=== PATIENT | female | born 1965 | race Caucasian/White ===

== ENCOUNTER 2018-11-28 18:49 | Emergency (ER) | payer BC ==
[2018-11-28 19:55] VITALS: RESP 18
[2018-11-28] MEDS ORDERED: IBUPROFEN 600 MG TAB PO STA (20:30)
--- NOTE | 2018-11-28 20:30 | ED ---
General Adult HPI - General Chief complaint: Extremity Injury, Upper Stated complaint: Clavicle injury Time Seen by Provider: 11/28/18 20:09 Source: patient, RN notes reviewed, old records reviewed Mode of arrival: ambulatory Limitations: no limitations - History of Present Illness Initial comments: 53-year-old female patient presented to the for chief complaint of left shoulder injury. Patient was that she was outside riding a horse, when the horse slipped and fell. Patient reports is she was going down she came off of the horse. 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 Patient states that she landed her left shoulder has pain in her left clavicle left shoulder. Denies any trauma to head or neck. Denies any recent blood thinners. Denies all other complaints. Systemic: Pt denies fatigue, fever/chills, rash. Pt denies weakness, night sweats, weight loss. Neuro: Pt denies headache, visual disturbances, syncope or pre-syncope. HEENT: Pt denies ocular discharge or irritation, otalgia, rhinorrhea, pharyngitis or notable lymphadenopathy. Cardiopulmonary: Pt denies chest pain, SOB, heart palpitations, dyspnea on exertion. Abdominal/GI: Pt denies abdominal pain, n/v/d. : Pt denies dysuria, burning w/ urination, frequency/urgency. Denies new onset urinary or bowel incontinence. MSK: Pt denies loss of strength or function in extremities. Neuro: Pt denies new onset weakness, paresthesias. - Related Data Home Medications Medication Instructions Recorded Confirmed No Known Home Medications 02/07/15 02/07/15 Allergies Allergy/AdvReac Type Severity Reaction Status Date / Time No Known Allergies Allergy Verified 11/28/18 19:55 Review of Systems ROS Statement: Those systems with pertinent positive or pertinent negative responses have been documented in the HPI. ROS Other: All systems not noted in ROS Statement are negative. Past Medical History Past Medical History: No Reported History History of Any Multi-Drug Resistant Organisms: None Reported Past Surgical History: No Surgical Hx Reported Past Psychological History: No Psychological Hx Reported Smoking Status: Never smoker Past Alcohol Use History: Occasional Past Drug Use History: None Reported General Exam - General Exam Comments Initial Comments: Constitutional: NAD, AOX3, Pt has pleasant affect. HEENT: NC/AT, trachea midline, neck supple, no lymphadenopathy. Posterior pharynx non erythematous, without exudates. External ears appear normal, without discharge. Mucous membranes moist. Eyes PERRLA, EOM intact. There is no scleral icterus. No pallor noted. Cardiopulmonary: RRR, no murmurs, rubs or gallops, no JVD noted. Lungs CTAB in anterior and posterior gao. No peripheral edema. Abdominal exam: Abdomen soft and non-distended. Abdomen non-tender to palpation in all 4 quadrants. Bowel sounds active in LLQ. No hepatosplenomegaly. No ecchymosis Neuro: CN II-XII intact. No nuchal rigidity. No raccon eyes, no banegas sign, no hemotympanum. No cervical spinal tenderness. MSK: Left clavicle swelling and ecchymoses noted distal aspect. Left humerus mild tender to palpation proximally. Distal pulses upper lower extremities in tact and equal. Small amount ecchymoses tetanus palpation in left dorsal aspect of foot region. Ambulatory without difficulty. No posterior calf tenderness bilaterally, homans sign negative bilaterally. Posterior tibialis and radial pulse +2 bilaterally. Sensation intact in upper and lower extremities. Full active ROM in upper and lower extremities, 5/5 stregnth. Limitations: no limitations Course Vital Signs 11/28/18 19:53 Temperature 98.2 F Pulse Rate 82 Respiratory 18 Rate Blood Pressure 163/88 O2 Sat by Pulse 99 Oximetry Medical Decision Making - Medical Decision Making 53-year-old female patient presented to the for chief complaint of left shoulder injury. Patient was that she was outside riding a horse, when the horse slipped and fell. Patient reports is she was going down she came off of the horse. 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 Patient states that she landed her left shoulder has pain in her left clavicle left shoulder. Denies any trauma to head or neck. Denies any recent blood thinners. Denies all other c omplaints. Patient vital signs stable, afebrile. Physical exam displayed ecchymoses at left distal clavicle. Tender to palpation. Mild amount of proximal humerus tenderness. No ecchymoses. Distal pulses intact and equal in upper and lower extremities. Left foot has mild amount of ecchymoses and swelling soft tissue on dorsal aspect. Patient is ambulatory without difficulty. Plain films displayed left clavicle fracture. Patient placed in sling, will be discharged with close outpatient orthopedic follow-up and pain medication. Case discussed with Dr. Dow. Disposition Clinical Impression: Clavicle fracture Disposition: HOME SELF-CARE Condition: Stable Instructions (If sedation given, give patient instructions): Clavicle Fracture (ED) Additional Instructions: Patient to adhere to previously discussed treatment plan and will take medication(s) as directed. Patient to follow up with PCP in 1-2 days. Patient to return to ED if symptoms do not improve. Follow up with primary care provider and orthopedic consult tomorrow. Continue to wear sling. Return to ER if condition worsens Is patient prescribed a controlled substance at d/c from ED?: No Referrals: Lani Sinha MD [REFERRING] - 1-2 days Wilner Marc MD [STAFF PHYSICIAN] - 1-2 days
--- NOTE | 2018-11-28 20:52 | XR ---
EXAMINATION TYPE: XR chest 2V DATE OF EXAM: 11/28/2018 COMPARISON: NONE HISTORY: Generalized pain after fall injury. TECHNIQUE: Frontal and lateral views of the chest are obtained. FINDINGS: There is chronic emphysematous change without suspicious focal space opacity, pleural effu danielito, or pneumothorax seen. The cardiac silhouette size is within normal limits. Overlying bra strap is seen. Comminuted acute displaced fracture through distal one third of left clavicle without AC akua int separation. IMPRESSION: Chronic emphysematous change without acute pulmonary process. Acute comminuted displaced fracture through distal one third left clavicle.
--- NOTE | 2018-11-28 21:17 | XR ---
PROCEDURE: XR humerus LT - 2V DATE AND TIME: 11/28/2018 8:56 PM CLINICAL INDICATION: PHH; pain after injury TECHNIQUE: Department protocol COMPARISON: None FINDINGS: There is no fracture or malalignment. The soft tissues are unremarkable. IMPRESSION: NO ACUTE PROCESS.
--- NOTE | 2018-11-28 21:18 | XR ---
PROCEDURE: XR shoulder limited LT - 1V DATE AND TIME: 11/28/2018 8:56 PM CLINICAL INDICATION: PHH; fall, pain TECHNIQUE: Department protocol COMPARISON: None FINDINGS: There is a one shaft caudally-displaced mildly comminuted fracture of the distal left clavi evelia. The acromioclavicular joint remains congruent as does the sternoclavicular joint. No other findings. IMPRESSION: Left clavicle fracture.
--- NOTE | 2018-11-28 21:22 | XR ---
PROCEDURE: XR foot limited LT - 2V DATE AND TIME: 11/28/2018 9:17 PM CLINICAL INDICATION: PHH; pain after injury TECHNIQUE: Department protocol COMPARISON: 02/07/2015 FINDINGS: There is no fracture or malalignment. The soft tissues are unremarkable. IMPRESSION: NO ACUTE PROCESS.
[2018-11-28] MEDS ORDERED: IBUPROFEN 600 MG STARTER PACK 4 TAB BTL PO STA (21:40)
[2018-11-28] MEDS ORDERED: ACET/COD 300 MG/30 MG STARTER PACK 6 TAB BTL PO STA (21:40)
[2018-11-28 23:08] VITALS: BP 153/70; PULSE 65; TEMP 98
== END 2018-11-28 21:50 | disposition home or self-care (01) ==
LOC: EC 18:49
DX: S42.032A Displaced fracture of lateral end of left clavicle, initial encounter for closed fracture (principal); S90.32XA Contusion of left foot, initial encounter; V80.010A Animal-rider injured by fall from or being thrown from horse in noncollision accident, initial encounter; Y93.52 Activity, horseback riding
CPT/HCPCS: 71046; 99284

== ENCOUNTER → 2019-03-16 | Outpatient (CLI) | payer BC ==
--- NOTE | 2019-03-16 14:05 | EST ---
EXERCISE STRESS AGE: 53 SEX: Female HT: 60 WT: 111 PROTOCOL: Jakob. STAGE: III DURATION OF EXERCISE: 7:00 HEART RATE REST: 84 BLOOD PRESSURE REST: 141/86 MAXIMUM HEART RATE ACHIEVED: 155 MAXIMUM BLOOD PRESSURE: 168/85 85% MPHR: 141 100% MPHR: 166 METS: 8.5 INDICATIONS: CLINICAL INFORMATION: Exercise stress test was performed. Patient was exercised for a total period of 7 minutes a peak heart rate of 155 was achieved. Maximum blood pressure of 168/85 mmHg was noted. The resting EKG shows normal sinus rhythm with normal NE interval and QRS duration and normal ST-T waves. During exercise J-point depression with upsloping ST segments are noted. Patient did not complain of any chest pain during the test. No dysrhythmias are noted. FINAL IMPRESSION: 1. This exercise test is not suggestive of ischemia. 2. Patient's exercise tolerance is normal. 3. Patient did not complain of any chest pain during the test. MMODL / IJN: [id number] /
== END | disposition home or self-care (01) ==
LOC: RADNMMAIN 08:41
PROVIDERS: ATTEND Family Medicine
DX: R94.31 Abnormal electrocardiogram [ECG] [EKG] (principal)
CPT/HCPCS: 93017

== ENCOUNTER → 2019-03-16 | Outpatient (CLI) | payer BC ==
[2019-03-16 11:31] LABS: Partial Thromboplastin Time 24.7 sec (22.0-30.0)
== END | disposition home or self-care (01) ==
LOC: LABWHC1 10:27
PROVIDERS: ATTEND Nurse Practitioner Family
DX: Z01.812 Encounter for preprocedural laboratory examination (principal); Z13.0 Encounter for screening for diseases of the blood and blood-forming organs and certain disorders involving the immune mechanism; Z13.228 Encounter for screening for other metabolic disorders; Z13.220 Encounter for screening for lipoid disorders; Z01.84 Encounter for antibody response examination; R94.31 Abnormal electrocardiogram [ECG] [EKG]
CPT/HCPCS: 36415; 85610; 85730

== ENCOUNTER 2019-03-22 13:39 | Day surgery (SDC) | payer BC ==
[2019-03-19 16:14] VITALS: BMI 21.4
[~2019-03-22 13:39] MED LIST: ACETAMINOPHEN TAB 500 MG TAB PO ONE; DEXAMETHASONE SOD PHOSPHATE 10 MG/ML 1 ML VIAL IV ONE; LIDOCAINE 1% 20 ML VIAL (10MG/ML) FOR IV START INTRADERMA PRN; MIDAZOLAM 2 MG/2 ML VIAL IV PRN; ONDANSETRON 4 MG/2 ML VIAL IVP ONE; SCOPOLAMINE 1.5MG/72HR PATCH TRANSDERM ONE
[2019-03-22] MEDS: LACTATED RINGERS 1,000 ML IV SCH ×3 (14:08→23:19)
[2019-03-22] MEDS ORDERED: MIDAZOLAM 2 MG/2 ML VIAL IV ONE (14:33)
[2019-03-22] MEDS ORDERED: ePHEDrine SULFATE/0.9% NACL/PF 50 MG/5 ML SYRINGE IV ONE (14:57)
[2019-03-22] MEDS ORDERED: PROPOFOL 10 MG/ML 20 ML VIAL IV ONE (14:57)
[2019-03-22] MEDS ORDERED: SUCCINYLCHOLINE CHLORIDE 100 MG/5 ML SYR IV ONE (14:57)
[2019-03-22] MEDS ORDERED: LIDOCAINE 1% INJ 10MG/ML (20 ML MDV) ONE (14:57)
[2019-03-22] MEDS ORDERED: MIDAZOLAM 2 MG/2 ML VIAL ONE (14:57)
[2019-03-22] MEDS ORDERED: fentaNYL (PF) 50 MCG/ML 2 ML AMP ONE (14:57)
[2019-03-22] MEDS ORDERED: BUPIVACAINE (PF) 0.25% 30 ML VIAL SQ ONE ×2 (15:29→16:20)
[2019-03-22] MEDS ORDERED: VANCOMYCIN 1,000 MG VIAL MISCELLANE ONE (16:06)
[2019-03-22] MEDS ORDERED: LACTATED RINGERS 1,000 ML IV ONE (16:17)
[2019-03-22] MEDS: HYDROmorphone 0.5 MG/0.5 ML SYRINGE IVP PRN ×2 (16:45→16:50)
[2019-03-22] MEDS ORDERED: LABETALOL SYRINGE 5 MG/ML IVP ONE (17:00)
[2019-03-22] MEDS ORDERED: MORPHINE SULFATE 4 MG/ML SYRINGE IV PRN (19:56)
[2019-03-22] MEDS ORDERED: HYDROcodone/APAP 7.5-325MG 1 EACH TAB PO PRN (20:01)
[2019-03-22] MEDS ORDERED: ONDANSETRON 4 MG/2 ML VIAL IVP PRN (20:02)
[2019-03-23] MEDS ORDERED: ACETAMINOPHEN TAB 325 MG TAB PO PRN (08:12)
[2019-03-23] MEDS ORDERED: ACETAMINOPHEN TAB 325 MG TAB PO STA (08:12)
[2019-03-23 08:19] VITALS: RESP 17; TEMP 97.2
--- NOTE | 2019-03-23 08:40 | P.DS ---
Providers Expected date of discharge: 03/23/19 Attending physician: Wilner Marc Primary care physician: Lani Sinha - Discharge Diagnosis(es) (1) Clavicle fracture Patient was admitted to the OR on 03/22/2019 to undergo ORIF of left clavicle fracture. She had failed conservative measures as an outpatient desired to proceed with elective surgery after given informed consent. She underwent the above procedure which she tolerated well without complication. Postoperative hospital remained without complication. On day of discharge she is afebrile, vital signs stable, labs within acceptable ranges, tolerating by mouth meds and diet, voiding without difficulty, positive flatus, denies abdominal pain or calf pain, pain is controlled on oral pain medication and has no new complaints. Wound is benign, neurovascular status is intact, calf is soft and nontender, abdomen soft and nontender. Review of systems is negative for numbness, tingling, fever, chills, chest pain, shortness of breath, nausea, vomiting, dizziness, headaches, slurred speech or other Current Visit: Yes Status: Acute Priority: Medium Procedures: ORIF Left Clavicle Patient Condition at Discharge: Good Plan - Discharge Summary Discharge Rx Participant: No New Discharge Prescriptions: New Doxycycline Hyclate 100 mg PO BID #10 tab HYDROcodone/APAP 7.5-325MG [[place] 7.5-325] 1 - 2 each PO Q6HR PRN #56 tab PRN Reason: Pain No Action Calcium Carbonate/Vitamin D3 [Calcium 600-Vit D3 2,500 Sftgl] 2.5 each PO DAILY Cholecalciferol (Vitamin D3) [Vitamin D3] 5,000 unit PO DAILY Acetaminophen Tab [Tylenol Tab] 650 mg PO Q4H PRN PRN Reason: Pain Discharge Medication List Calcium Carbonate/Vitamin D3 [Calcium 600-Vit D3 2,500 Sftgl] 2.5 each PO DAILY 03/19/19 [History] Cholecalciferol (Vitamin D3) [Vitamin D3] 5,000 unit PO DAILY 03/19/19 [History] Acetaminophen Tab [Tylenol Tab] 650 mg PO Q4H PRN 03/21/19 [History] Doxycycline Hyclate 100 mg PO BID #10 tab 03/22/19 [Rx] HYDROcodone/APAP 7.5-325MG [[place] 7.5-325] 1 - 2 each PO Q6HR PRN #56 tab 03/22/19 [Rx] Follow up Appointment(s)/Referral(s): Wilner Marc MD [STAFF PHYSICIAN] - 1 Week Patient Instructions/Handouts: *Surgery [facility] - (Anesthesia) Discharge Instructions Outpatient Surgery, *Surgery [facility] - Scopalamine Patch Instructions Activity/Diet/Wound Care/Special Instructions: Maintain sling Keep wound clean and dry take meds as directed F/U with Dr. Marc in office call to make appointment to see him in 1 week May shower in three days if no bleeding Discharge Disposition: HOME SELF-CARE
--- NOTE | 2019-03-23 11:39 | OP ---
OPERATIVE REPORT DATE OF PROCEDURE: 03/22/2019 PREOPERATIVE DIAGNOSIS: Left midshaft displaced clavicle fracture. POSTOPERATIVE DIAGNOSIS: Left midshaft displaced clavicle fracture. PROCEDURE PERFORMED: Open reduction, internal fixation, left clavicle fracture. SURGEON: Wilner Marc MD. BARREL TESTER: Kenny BERNAL. ANESTHESIA: General endotracheal. ESTIMATED BLOOD LOSS: 50 mL. TOURNIQUET: None. DRAINS: None. COMPLICATIONS: None apparent. DISPOSITION: Postanesthesia care unit. INDICATIONS: Holly is a very pleasant 53-year-old female who injured her left clavicle after she fell off a horse. Workup including x-rays revealed a displaced midshaft clavicle fracture. I had a long discussion with her initially. She elected to try treating this non operatively. It has been several months now and there has not been any evidence of healing of the fracture. At this point in time, she has elected to proceed with open reduction, internal fixation of the midshaft clavicle fracture. The risks of the procedure were discussed with her and her family in detail. These risks include, but are not limited to risk of infection, nerve damage, bleeding, pain, and a small risk of deep vein thrombosis which could lead to fatal pulmonary embolism. Further risks include possibility for hardware failure and also possibility of failure of the fracture to heal. All of her and her family's questions were answered to her satisfaction. Appropriate informed consent was obtained. DESCRIPTION OF THE PROCEDURE: Patient identified in the preoperative holding area. Surgical site was marked by both the patient and myself. She was given 2 g of Ancef IV for prophylactic purposes. She was then transported to the operative suite. She was placed supine on the operative table. General anesthetic was then administered and dosed per the Anesthesia Department without apparent complication. Examination under anesthesia was then performed. She was then placed into the beach chair position well-padded in preparation for surgery. Great care was taken to ensure that her cervical spine was in neutral alignment, well-padded and maintained that way throughout the operative procedure. Great care was also taken to ensure that her legs were appropriately padded as well. Patient's left upper extremity was then prepped and draped in the usual sterile fashion. Standard surgical pause undertaken to ensure that we were operating the correct site and that appropriate preoperative antibiotics were given. All staff were in agreement and we proceeded. The outlines of the clavicle, acromion and AC joint were marked with surgical pen. A planned 10-12 cm incisions over the anterior aspect of the clavicle was then marked with a surgical pen. The incision was then made with a 10 blade scalpel. Dissection carried down sharply to the superior surface of the clavicle. Great care was taken to ensure that I had very thick flaps for closure over the plate at the end of the procedure. Very careful dissection was then done on the distal aspect of the fracture. There was quite a bit of scar tissue and fibrous tissue at the nonunion site of the clavicle. This was very carefully released. This was to mobilize the fracture fragments. It was very clean fracture. The ends of the fracture were then debrided of all devitalized fibrous tissue to gain a nice bleeding bony surface for fixation. The fracture was then reduced with reduction forceps. I then proceeded with choosing a plate. I utilized an Accumed precontoured 3.5 mm clavicle plate. This fit very nicely. I then proceeded with fixation. I first placed a 3.5 mm nonlocking screw through the oblong hole in the proximal aspect of the plate. We then reduced the fracture and placed a 3.5 mm bicortical nonlocking screw through the oblong hole in the distal fragment of the fracture. This was placed in a compression mode as well. This reduced the fracture very nicely and also compressed the fracture as much as possible. We then proceeded to place 3.5 mm bicortical locking screws. Two were placed in the proximal fragment and 2 locking screws were placed in the distal fragment. In total, there were 6 cortices of fixation on both the proximal and distal aspect of the fracture. The fracture had been compressed very nicely. All the screws were of appropriate length. At this point, we proceeded with closure. The wound was thoroughly irrigated with sterile saline solution. We then sprinkled approximately 500 mg of vancomycin powder deep into the wound. The deltotrapezial fascia was then closed with 0 Vicryl interrupted suture. This provided a nice thick closure over the plate. The wound again was thoroughly irrigated with sterile saline solution. The subcutaneous tissue was closed with 2-0 Vicryl interrupted suture. The skin was closed with a running 3-0 Quill suture. Dermabond was then applied to the incision. Sterile dressing was then applied. The patient left upper extremity was placed in a standard sling. All sponge and needle counts were deemed correct prior to closure. The patient tolerated the procedure without apparent complication. She was transferred to the recovery room in stable condition. ANDRÉS / MARYBELN: [id number] /
[2019-03-23 12:12] LABS: Appearance,Urine Clear (Clear); Bilirubin,Urine Negative (Negative); Blood,Urine Negative (Negative); Color,Urine Light Yellow; Glucose,Urine (UA) Negative (Negative); Ketones,Urine Negative (Negative); Leukocyte Esterase,Urine Negative (Negative); Nitrite,Urine Negative (Negative); Protein,Urine Negative (Negative); Specific Gravity,Urine 1.006 (1.001-1.035); Urobilinogen,Urine <2.0 mg/dL (<2.0)
[2019-03-23 12:25] VITALS: BP 130/82; PULSE 97
== END 2019-03-23 12:39 | disposition home or self-care (01) ==
LOC: OR 13:39 → 4SSUR 16:31 → OR 03-23 12:39
PROVIDERS: ATTEND Orthopaedic Surgery Sports Medicine
DX: S42.022A Displaced fracture of shaft of left clavicle, initial encounter for closed fracture (principal); J45.909 Unspecified asthma, uncomplicated; K21.9 Gastro-esophageal reflux disease without esophagitis; Z88.0 Allergy status to penicillin; Z87.440 Personal history of urinary (tract) infections; Z82.49 Family history of ischemic heart disease and other diseases of the circulatory system; Z83.3 Family history of diabetes mellitus; Z80.3 Family history of malignant neoplasm of breast; Z82.3 Family history of stroke; V80.010A Animal-rider injured by fall from or being thrown from horse in noncollision accident, initial encounter; Y93.52 Activity, horseback riding
CPT/HCPCS: 81003; 23515; C1713; J2250; J3370; J1100; J0690; J2405; J2001; J3010; J0330; J2704; J1170

== ENCOUNTER 2023-08-31 18:55 | Emergency (ER) | payer BC ==
[2023-08-31 18:59] VITALS: RESP 20; TEMP 97.9
--- NOTE | 2023-08-31 19:52 | ED ---
General Adult HPI - General Chief complaint: Wound/Laceration Stated complaint: finger lac Time Seen by Provider: 08/31/23 19:02 Source: patient, RN notes reviewed Mode of arrival: ambulatory Limitations: no limitations - History of Present Illness Initial comments: 58-year-old female presenting to the ED with a chief complaint of laceration. Patient states that she was organizing old pictures when she was not paying attention and accidentally scraped her left second finger across the glass causing small laceration. No other injuries at this time. Tetanus status not up-to-date. No other complaints at this time. - Related Data Home Medications Medication Instructions Recorded Confirmed Calcium Carbonate/Vitamin D3 2.5 each PO DAILY 03/19/19 03/19/19 [Calcium 600-Vit D3 2,500 Sftgl] Cholecalciferol (Vitamin D3) 5,000 unit PO DAILY 03/19/19 03/19/19 [Vitamin D3] Acetaminophen Tab [Tylenol Tab] 650 mg PO Q4H PRN 03/21/19 03/22/19 Previous Rx's Medication Instructions Recorded Doxycycline Hyclate 100 mg PO BID #10 tab 03/22/19 HYDROcodone/APAP 7.5-325MG [[place] 1 - 2 each PO Q6HR PRN #56 tab 03/22/19 7.5-325] Allergies Allergy/AdvReac Type Severity Reaction Status Date / Time Penicillins Allergy Rash/Hives Verified 08/31/23 18:59 Review of Systems ROS Statement: Those systems with pertinent positive or pertinent negative responses have been documented in the HPI. ROS Other: All systems not noted in ROS Statement are negative. Past Medical History Past Medical History: No Reported History History of Any Multi-Drug Resistant Organisms: None Reported Past Surgical History: No Surgical Hx Reported Past Psychological History: No Psychological Hx Reported Past Alcohol Use History: Occasional General Exam Limitations: no limitations General appearance: alert, in no apparent distress Neck exam: Present: normal inspection Respiratory exam: Present: normal lung sounds bilaterally Cardiovascular Exam: Present: regular rate GI/Abdominal exam: Present: soft, normal bowel sounds. Absent: distended, tenderness, guarding, rebound, rigid Extremities exam: Present: other (Approximately 1 cm superficial laceration to the dorsal aspect of her distal left finger just proximal to the nail without active bleeding.) Neurological exam: Present: alert, oriented X3 Skin exam: Present: warm, dry Course Vital Signs 08/31/23 18:57 Temperature 97.9 F Pulse Rate 108 H Respiratory 20 Rate Blood Pressure 176/97 O2 Sat by Pulse 97 Oximetry Medical Decision Making - Medical Decision Making Was pt. sent in by a medical professional or institution (, [employer], ASSEM[employer]ED [employer] REPAIRER, urgent care, hospital, or alf...) When possible be specific @ -No Did you speak to anyone other than the patient for history (EMS, parent, family, police, friend...)? What history was obtained from this source @ -No Did you review nursing and triage notes (agree or disagree)? Why? @ -I reviewed and agree with nursing and triage notes Were old charts reviewed (outside hosp., previous admission, EMS record, old EKG, old radiological studies, urgent care reports/EKG's, alf records)? Report findings @ -No old charts were reviewed Differential Diagnosis (chest pain, altered mental status, abdominal pain women, abdominal pain men, vaginal bleeding, weakness, fever, dyspnea, syncope, headache, dizziness, GI bleed, back pain, seizure, CVA, palpatations, mental health, musculoskeletal)? @ -Differential Musculoskeletal Muscular strain, contusion, ligament sprain, fracture, arthritis, septic arthritis, bursitis, cellulitis, muscle spasm, nerve compression, DVT, arterial occlusion, herpes zoster, electrolyte abnormality, tumor.... This is not meant to be in all inclusive list EKG interpreted by me (3pts min.). @ -None X-rays interpreted by me (1pt min.). @ -None done CT interpreted by me (1pt min.). @ -None done U/S interpreted by me (1pt. min.). @ -None done What testing was considered but not performed or refused? (CT, X-rays, U/S, labs)? Why? @ -None What meds were considered but not given or refused? Why? @ -None Did you discuss the management of the patient with other professionals (professionals i.e. , [employer], ASSEM[employer]ED [employer] REPAIRER, lab, RT, psych nurse, social services designee, grades 1 thru 6 home teacher, teacher, court officer, case management associate)? Give summary @ -No Was smoking cessation discussed for >3mins.? @ -No Was critical care preformed (if so, how long)? @ -No Were there social determinants of health that impacted care today? How? (Homelessness, low income, unemployed, alcoholism, drug addiction, transportation, low edu. Level, literacy, decrease access to med. care, correction, rehab)? @ -No Was there de-escalation of care discussed even if they declined (Discuss DNR or withdrawal of care, Hospice)? DNR status @ -No What co-morbidities impacted this encounter? (DM, HTN, Smoking, COPD, CAD, Cancer, CVA, ARF, Chemo, Hep., AIDS, mental health diagnosis, sleep apnea, morbid obesity)? @ -None Was patient admitted / discharged? Hospital course, mention meds given and route, prescriptions, significant lab abnormalities, going to OR and other perti nent info. @ -Discharge 58-year-old female presented to the ED with complaints of laceration to the dorsal aspect of her left second finger. On examination laceration approximately 1 cm superficial not amenable to primary repair. At this time does not even require Steri-Strip or skin glue as wound is very superficial well-approximated. Tetanus was ordered however patient was on the fence about receiving this. Patient offered oral antibiotics however patient reports that she would just use topical antibiotics and would not like prescription for oral antibiotics. Discharged home in stable condition. Discussed return precautions with patient who verbalized agreement. Undiagnosed new problem with uncertain prognosis? @ -No Drug Therapy requiring intensive monitoring for toxicity (Heparin, Nitro, Insulin, Cardizem)? @ -No Were any procedures done? @ -No Diagnosis/symptom? @ -Laceration Acute, or Chronic, or Acute on Chronic? @ -Acute Uncomplicated (without systemic symptoms) or Complicated (systemic symptoms)? @ -Uncomplicated Side effects of treatment? @ -No Exacerbation, Progression, or Severe Exacerbation? @ -No Poses a threat to life or bodily function? How? (Chest pain, [place], [place], pneumonia, PE, COPD, DKA, ARF, appy, cholecystitis, CVA, Diverticulitis, Homicidal, Moise icidal, threat to staff... and all critical care pts) @ -No Disposition Clinical Impression: Laceration Disposition: HOME SELF-CARE Condition: Good Instructions (If sedation given, give patient instructions): Laceration (ED) Additional Instructions: Please return to the Emergency Department if symptoms worsen or any other concerns. Please follow-up with your primary care provider. Is patient prescribed a controlled substance at d/c from ED?: No Referrals: Lani Sinha MD [Primary Care Provider] - 1-2 days Time of Disposition: 19:55
[2023-08-31] MEDS: DIPH,PERTUS(ACELL)TETVAC-LF 0.5 ML VIAL IM ONE (20:21)
[2023-08-31 20:31] VITALS: BP 161/90; PULSE 92
== END 2023-08-31 20:31 | disposition home or self-care (01) ==
LOC: EC 18:55
DX: S61.219A Laceration without foreign body of unspecified finger without damage to nail, initial encounter (principal); Z88.0 Allergy status to penicillin; Z23 Encounter for immunization; W25.XXXA Contact with sharp glass, initial encounter
CPT/HCPCS: 90471; 90715; 99282